=== PATIENT | male | born 1990 | race Two or more races ===

== ENCOUNTER 2019-04-02 21:40 | Emergency (ER) | payer MEDICAID, OTHER ==
[~2019-04-02] VITALS: Ht 177.8 cm; Wt 90.9 kg
[2019-04-02] MEDS ORDERED: PALI234D IM (21:59)
[2019-04-02] MEDS ORDERED: OLAN7.5T2 PO (21:59)
[2019-04-02 22:27] LABS: APPEARANCE,URINE CLEAR (CLEAR); BILIRUBIN,URINE NEGATIVE (NEGATIVE); GLUCOSE, URINE (UA) NEGATIVE (NEGATIVE); KETONES,URINE NEGATIVE (NEGATIVE); LEUKOCYTE ESTERASE ,URINE NEGATIVE (NEGATIVE); NITRATE,URINE NEGATIVE (NEGATIVE); OCCULT BLOOD,URINE NEGATIVE (NEGATIVE); PROTEIN,URINE NEGATIVE (NEGATIVE); UROBILINOGEN,URINE 0.2 mg/dL (<=1.0)
[2019-04-02 23:00] VITALS: BP 127/76
== END 2019-04-02 23:16 | disposition home or self-care (01) ==
LOC: EMS 21:47
DX: R33.9 Retention of urine, unspecified (principal); F22 Delusional disorders; F17.210 Nicotine dependence, cigarettes, uncomplicated; F20.9 Schizophrenia, unspecified
CPT/HCPCS: 99406

== ENCOUNTER 2019-04-28 23:45 | Emergency (ER) | payer SELFPAY ==
[~2019-04-28] VITALS: Ht 177.8 cm; Wt 95.5 kg
[~2019-04-28 23:45] MED LIST: OLAN7.5T2 PO; PALI234D IM
[2019-04-29] MEDS ORDERED: OLANZapine 5 MG TABLET PO ONE (01:00)
[2019-04-29] MEDS ORDERED: LORazepam 2 MG/ML VIAL IM ONE (01:30)
[2019-04-29 02:15] VITALS: BP 136/85
[2019-04-29 02:20] LABS: APPEARANCE,URINE CLEAR (CLEAR); BILIRUBIN,URINE NEGATIVE (NEGATIVE); GLUCOSE, URINE (UA) NEGATIVE (NEGATIVE); KETONES,URINE NEGATIVE (NEGATIVE); LEUKOCYTE ESTERASE ,URINE TRACE (NEGATIVE); NITRATE,URINE NEGATIVE (NEGATIVE); OCCULT BLOOD,URINE NEGATIVE (NEGATIVE); PROTEIN,URINE NEGATIVE (NEGATIVE); UROBILINOGEN,URINE 0.2 mg/dL (<=1.0)
[2019-04-29 02:39] LABS: BACTERIA,URINE Moderate /HPF (None Seen); RBC,URINE None Seen /HPF (0-2); SQUAMOUS EPITHELIAL CELL,UR Few /LPF (None Seen)
== END 2019-04-29 03:04 | disposition home or self-care (01) ==
LOC: EMS 23:47
DX: R33.9 Retention of urine, unspecified (principal); N39.0 Urinary tract infection, site not specified; R39.11 Hesitancy of micturition; F20.9 Schizophrenia, unspecified; F41.9 Anxiety disorder, unspecified; F17.210 Nicotine dependence, cigarettes, uncomplicated
CPT/HCPCS: 81001; 87077; 87086; 87186; 96372; 99284; 99406; J2060

== ENCOUNTER 2019-08-12 05:40 | Emergency (ER) | payer MEDICAID, OTHER | END 2019-08-12 05:47 | disposition left against medical advice (07) | LOC: EMS 05:40 | DX: R33.9 Retention of urine, unspecified (principal); Z53.21 Procedure and treatment not carried out due to patient leaving prior to being seen by health care provider ==